=== PATIENT | male | born 2000 | race Asian ===

== ENCOUNTER 2021-10-08 01:57 | Inpatient (IN) | payer MEDICAID ==
[2021-10-08 04:46] LABS: Amphetamine Screen,Urine Not Detected (NotDetected); Barbiturate Screen,Urine Not Detected (NotDetected); Benzodiazepines Screen,Urine Not Detected (NotDetected); Cocaine Screen,Urine Not Detected (NotDetected); Methadone Screen, Urine Not Detected (NotDetected); Opiate Screen,Urine Not Detected (NotDetected); Oxycodone Screen, Urine Not Detected (NotDetected); Phencyclidine Screen,Urine Not Detected (NotDetected); Tricyclic Antidepressant,Urine Not Detected (NotDetected); Urn Cannabinoid Scrn Not Detected (NotDetected)
--- NOTE | 2021-10-08 04:55 | ED ---
General Adult HPI - General Chief complaint: Psychiatric Symptoms Stated complaint: Petition Time Seen by Provider: 10/08/21 03:04 Source: police, EMS, RN notes reviewed, old records reviewed Mode of arrival: EMS - History of Present Illness Initial comments: Patient is a 21-year-old male who presents emergency Department complaining of suicidal ideations. He was petitioned. Has a history of suicidal ideations, plans in the past. She was petitioned. This patient states "Gilberto's depressed, has researched what pills he can take to kill himself. He stated he does have thoughts about killing himself. "Patient does corroborate this story. Denies homicidal ideations, attempts, plans. Denies visual or auditory hallucinations. His no other acute complaints at this time. Has not attempted suicide currently. Presents for psychiatric evaluation. - Related Data Allergies Allergy/AdvReac Type Severity Reaction Status Date / Time No Known Allergies Allergy Verified 10/08/21 02:57 Review of Systems ROS Statement: Those systems with pertinent positive or pertinent negative responses have been documented in the HPI. Review of Systems: CONST: Denies fever EYES: Denies blurry vision ENT: Denies nasal congestion C/V: Denies Chest pain RESP: Denies shortness of breath GI: Denies abdominal pain : Denies dysuria SKIN: Denies rash. MSK: Denies joint pain. NEURO: Denies headache PSYCH: Denies homicidal ideations/plans/attempts. Denies visual or auditory hallucinations. He endorses suicidal ideations, plans. Denies attempt. ROS Other: All systems not noted in ROS Statement are negative. Past Medical History Past Medical History: No Reported History History of Any Multi-Drug Resistant Organisms: None Reported Past Surgical History: No Surgical Hx Reported Past Psychological History: Anxiety Smoking Status: Never smoker Past Alcohol Use History: None Reported Past Drug Use History: None Reported General Exam - General Exam Comments Initial Comments: General: Appears in no acute distress. HEAD: Normal with no signs of head trauma. EYES: PERRLA, EOMI, conjunctiva normal, no discharge. ENT: Hearing grossly intact, normal oropharynx. RESPIRATORY: Clear breath sounds bilaterally. No wheezes, rales, or rhonchi. C/V: Regular rate and rhythm. S1 and S2 auscultated, no edema, peripheral pulses 2+ and intact throughout ABD: Abd is soft, nontender, nondistended EXT: Normal range of motion, no obvious deformity SKIN: No rashes or lesions observed on exposed skin. NEURO: Alert and oriented 4. Course Vital Signs 10/08/21 10/08/21 02:53 04:09 Temperature 98.9 F Pulse Rate 91 77 Respiratory 18 15 Rate Blood Pressure 166/81 129/68 O2 Sat by Pulse 100 98 Oximetry Medical Decision Making - Medical Decision Making Based on the patient's presentation and physical exam, do believe here. Psychiatric evaluation. Patient is changed in agreement scribes. Sitter was ordered. Suicide precautions were ordered. BAT is 0. UDS is negative. Vital signs are within normal limits. At this time patient is medically cleared for evaluation by psychiatry. Disposition is pending EPS evaluation. EPS evaluated the patient. Determined that he meets inpatient criteria. Certification was completed by myself. Patient will be admitted to inpatient psych. - Lab Data Lab Results 10/08/21 Range/Units 04:17 Urine Opiates Screen Not Detected (NotDetected) Ur Oxycodone Screen Not Detected (NotDetected) Urine Methadone Screen Not Detected (NotDetected) Ur Propoxyphene Screen Not Detected (NotDetected) Ur Barbiturates Screen Not Detected (NotDetected) U Tricyclic Antidepress Not Detected (NotDetected) Ur Phencyclidine Scrn Not Detected (NotDetected) Ur Amphetamines Screen Not Detected (NotDetected) U Methamphetamines Scrn Not Detected (NotDetected) U Benzodiazepines Scrn Not Detected (NotDetected) Urine Cocaine Screen Not Detected (NotDetected) U Marijuana (THC) Screen Not Detected (NotDetected) Disposition Clinical Impression: Suicidal behavior, Encounter for psychiatric assessment Disposition: TRANSFER TO PSYCH HOSP/UNIT Condition: Stable Referrals: Shlomo Chand MD [Primary Care Provider] - 1-2 days
[2021-10-08] MEDS ORDERED: MAG HYDROX/AL HYDROX/SIMETH 30 ML CUP PO PRN (07:27)
[2021-10-08] MEDS ORDERED: MAGNESIUM HYDROXIDE 2,400 MG/10 ML CUP PO PRN (07:27)
[2021-10-08] MEDS ORDERED: ACETAMINOPHEN TAB 325 MG TAB PO PRN (07:27)
[2021-10-08] MEDS ORDERED: haloperidoL 5 MG TAB PO PRN (07:28)
[2021-10-08] MEDS ORDERED: HALOPERIDOL LACTATE 5 MG/ML 1 ML VIAL IM PRN (07:28)
[2021-10-08] MEDS ORDERED: LORazepam 2 MG/ML INJ IM PRN (07:30)
[2021-10-08] MEDS ORDERED: LORazepam 1 MG TAB PO PRN (07:30)
--- NOTE | 2021-10-08 16:39 | P.CONS ---
History of Present Illness - Reason for Consult Consult date: 10/08/21 - History of Present Illness Patient is a 21-year-old male with no significant PMH that presents to the ED for behavioral disturbances. He's been admitted to mental health unit for further management of his symptoms. [facility] been consulted for medical management of this patient. Patient denies any headache, lower extremity edema, nausea or vomiting, fever or chills, cough, chest pain, shortness of breath, palpitations, changes in urination or bowel habits. No changes in appetite or weight. He denies any dizziness, numbness/weakness/tingling of the extremities. He denies smoking cigarettes or drinking alcohol. Denies illicit substace. Review of systems was performed and is negative except above. General: non toxic, no distress, appears at stated age Derm: warm, dry Head: atraumatic, normocephalic, symmetric Eyes: EOMI, no lid lag, anicteric sclera Mouth: no lip lesion, mucus membranes moist Cardiovascular: Normal S1 S2, no murmur, positive posterior tibial pulse bilateral, Lungs: CTA bilateral, no rhonchi, no rales , no accessory muscle use Abdominal: soft, nontender to palpation, no guarding, no appreciable organomegaly Ext: no gross muscle atrophy, no edema, no contractures Neuro: CN II-XI grossly intact, no focal neuro deficits Psych: Alert, oriented, appropriate affect #Suicidal ideation Management as per psychiatry. Thank you for this consultation. Please call [facility] with additional questions or concerns. Past Medical History Past Medical History: No Reported History History of Any Multi-Drug Resistant Organisms: None Reported Past Surgical History: No Surgical Hx Reported Past Anesthesia/Blood Transfusion Reactions: No Reported Reaction Past Psychological History: Anxiety Smoking Status: Never smoker Past Alcohol Use History: None Reported Past Drug Use History: None Reported Medications and Allergies Allergies Allergy/AdvReac Type Severity Reaction Status Date / Time No Known Allergies Allergy Verified 10/08/21 02:57 Physical Exam Vitals: Vital Signs Temp Pulse Pulse Resp BP BP Pulse Ox 10/08/21 11:30 97.6 F 68 18 138/68 10/08/21 09:35 72 18 122/84 96 10/08/21 04:09 77 15 129/68 98 10/08/21 02:53 98.9 F 91 18 166/81 100 Intake and Output 10/08/21 10/08/21 10/08/21 06:59 14:59 22:59 Other: Weight 90.718 kg 90.718 kg
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
[2021-10-08] MEDS: SERTRALINE 50 MG TAB PO SCH (23:12)
[2021-10-09 07:07] VITALS: RESP 16
[2021-10-09 10:07] LABS: Basophils % (A) 1 %; Eosinophils # (A) 0.1 k/uL (0-0.7); Eosinophils % (A) 2 %; HCT 46.4 % (39.0-53.0); Lymphocytes # (A) 1.2 k/uL (1.0-4.8); Lymphocytes % (A) 29 %; MCH 29.2 pg (25.0-35.0); MCHC 32.3 g/dL (31.0-37.0); MCV 90.3 fL (80.0-100.0); Mean Platelet Volume 7.7; Monocytes # (A) 0.4 k/uL (0-1.0); Monocytes % (A) 8 %; Neutrophils # (A) 2.5 k/uL (1.3-7.7); Neutrophils % (A) 59 %; Platelet Count 253 k/uL (150-450); RBC 5.14 m/uL (4.30-5.90); RDW 12.5 % (11.5-15.5); WBC 4.3 k/uL (3.8-10.6)
[2021-10-09 10:23] LABS: ALT 28 U/L (4-49); AST 22 U/L (17-59); African American GFR (CKD) >90 (>60 ml/min/1.73 sqM); Albumin 4.8 g/dL (3.5-5.0); Alkaline Phosphatase 52 U/L (38-126); Anion Gap 10 mmol/L; Blood Urea Nitrogen 17 mg/dL (9-20); Calcium 9.5 mg/dL (8.4-10.2); Carbon Dioxide 26 mmol/L (22-30); Chloride 102 mmol/L (98-107); Glucose 120 mg/dL (74-99); Non-African American GFR(CKD) >90 (>60 ml/min/1.73 sqM); Potassium 4.5 mmol/L (3.5-5.1); Sodium 138 mmol/L (137-145); Total Bilirubin 0.8 mg/dL (0.2-1.3); Total Protein 7.7 g/dL (6.3-8.2)
--- NOTE | 2021-10-09 19:16 | P.PN ---
Progress Note - Text Progress Note Date: 10/09/21 Interval history: Patient was seen walking in the hallways and was directable and agreeable to speak with medical technical writer. He reports mood, sleep and appetite are improving today. He still appears anxious during conversation. At this time, patient denies any suicidal or homicidal ideations, intent or plan. He denies any auditory or visual hallucinations. Patient denies any side effects from the medications and has been compliant with meds. Mental status exam: General Appearance: Patient appears to be stated age, is dressed in clean attire. Behavior: No agitated behavior. Patient is calm and directable. Eye contact is improving. Speech: Patient's speech is fluent and non-pressured. Mood/Affect: Mood is improving mildly, affect is congruent and constricted. Suicidality/Homicidality: Patient denies having any suicidal or homicidal ideation intent or plan. Perceptions: Patient denies any auditory or visual hallucinations. Though content/process: There is no evidence of any delusional thought content and thought process is linear and goal-directed. Memory and concentration: AOX3, grossly intact for the purposes of this session Judgment and insight: Improving mildly Assessment/Plan: Continue with current diagnosis. [facility] and [facility]. Patient will be maintained on current psychotropic medication regimen. Monitor for medication compliance and for any psychotropic medication side effects. Will continue to monitor ongoing response to treatment. Encouraged participation in milieu.
[2021-10-09] MEDS: SERTRALINE 50 MG TAB PO SCH (21:27)
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
[2021-10-10] MEDS: SERTRALINE 100 MG TAB PO SCH (20:47)
[2021-10-11] MEDS: SERTRALINE 100 MG TAB PO SCH (20:34)
[2021-10-12 07:14] VITALS: BP 147/82; PULSE 103; TEMP 98.3
--- NOTE | 2021-10-12 11:33 | P.PN ---
Progress Note - Text Progress Note Date: 10/11/21 Interval History: Patient was seen attending groups and was directable and agreeable to speak with music writer in the office. Patient continues to report no suicidal or homicidal ideation, intention, and/or plan. He is denying any auditory or visual hallucinations. He reports no paranoia or other delusions. The patient expresses that he had significant anxiety after discussion with his mother who informed him that she was considering guardianship should he not make the right decision order to protect himself. The patient is uncertain whether he will return home with his family. We engaged in significant cognitive behavioral therapy during this interview including cognitive reframing and reflective listening. He reports no issues regarding his sleep or his appetite. He has been adherent with his medication is not endorsing any significant side effects. He has been attending groups at the high-level participation. Mental Status Exam: General Appearance: Patient appears to be stated age is alert, directable, and cooperative. Behavior: Patient is calmly seated without any agitated behavior. Speech: Patient's speech is fluent and nonpressured. Mood/Affect: Mood is improving mildly, affect is congruent and constricted. Suicidality/Homicidality: Patient denies having any suicidal or homicidal ideation intent or plan. Perceptions: Patient denies any visual hallucinations and denies any auditory hallucinations Though content/process: There is no evidence of any delusional thought content and thought process is linear and goal-directed. Memory and concentration: AOX3, grossly intact for the purposes of this session Judgment and insight: Improving mildly Assessment Major depressive disorder, single episode, severe, without psychotic features Rule out borderline personality disorder Plan: -Patient continues to meet criteria for inpatient psychiatric admission for symptom stabilization and safety. Patient has signed adult voluntary form and medication consent and was placed in patient's chart. -Medications: Continue Zoloft 100 mg by mouth at bedtime for depression/anxiety -When necessary Ativan and Haldol for agitation/aggression. -SW on board for discharge planning. Encouraged the patient to participate in milieu.
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
== END 2021-10-12 13:40 | disposition home or self-care (01) | DRG 885 ==
LOC: EC 01:57 → 3MHU 07:25
PROVIDERS: ADMIT Psychiatry & Neurology Psychiatry; ATTEND Psychiatry & Neurology Psychiatry
DX: F32.2 Major depressive disorder, single episode, severe without psychotic features (principal); R45.851 Suicidal ideations; F41.9 Anxiety disorder, unspecified; F51.5 Nightmare disorder; F91.9 Conduct disorder, unspecified; Z79.899 Other long term (current) drug therapy
CPT/HCPCS: 80053; 80306; 82075; 83036; 84443; 85025; 87635; 99285